=== PATIENT | female | born 1980 | race Caucasian/White ===

== ENCOUNTER → 2017-02-10 | Outpatient (CLI) | payer MEDICARE ==
[~2017-02-10] MED LIST: ATARAX25 MG PO; CELEXA20 MG PO; DAYPRO600 M1 PO; INVEGA6 MG PO; MEDROL DOSEPAK4 MG PO; NORFLEX100 MG PO; PIROXICAN10 MG PO; SEPTRA DS 800 M1 TAB PO; TAGAMET300 MG PO; TRAMADOL HCL50 MG PO; WELLBUTRIN SR150 MG PO
[2017-02-10 18:57] LABS: BASO # 0.1 10*3/uL (0.0-0.1); BASO % 0.7 % (0.0-1.0); EOS # 0.3 10*3/uL (0.0-0.4); EOS % 2.6 % (1.0-4.0); HEMATOCRIT 38.5 % (37.0-47.0); HEMOGLOBIN 13.7 g/dl (12.0-16.0); LYMPH # 3.8 10*3/uL (1.3-4.4); LYMPH % 36.6 % (27.0-41.0); MEAN CELL VOLUME 88.9 fl (81.0-99.0); MEAN CORPUSCULAR HGB 31.6 pg (27.0-31.0); MEAN CORPUSCULAR HGB CONC 35.6 g/dl (33.0-37.0); MEAN PLATELET VOLUME 9.9 fl (9.6-12.3); MONO # 0.5 10*3/uL (0.1-1.0); MONO % 4.7 % (3.0-9.0); NEUT # 5.7 10*3/uL (2.3-7.9); PLATELET COUNT AUTOMATED 282 10*3/uL (130-400); RED BLOOD COUNT 4.33 10*6/uL (4.10-5.10); RED CELL DISTRI WIDTH 11.5 % (0-14.5); WHITE BLOOD COUNT 10.4 10*3/uL (4.8-10.8)
[2017-02-10 19:27] LABS: ALBUMIN 3.6 gm/dl (3.1-4.5); BILIRUBIN, DIRECT < 0.1 mg/dL (0.0-0.2); BUN 16 mg/dl (7-24); CHLORIDE 106 mmol/L (98-107); CHOLESTEROL 224 mg/dL (<200); CREATININE 0.93 mg/dL (0.55-1.02); HDL CHOLESTEROL 39 mg/dl (40-60); POTASSIUM 3.8 mmol/L (3.5-5.1); SGOT/AST 28 IU/L (3-35); SGPT/ALT 31 U/L (12-78); SODIUM 139 mmol/L (136-145); T3 UPTAKE 39 % (31-39); TOTAL PROTEIN 7.3 gm/dL (6.4-8.2); TRIGLYCERIDES 697 mg/dl (<150)
[2017-02-10 19:32] LABS: ALKALINE PHOSPHATASE 98 U/L (45-117)
[2017-02-10 19:45] LABS: FREE T4 0.84 ng/dl (0.76-1.46)
== END | disposition home or self-care (01) ==
LOC: LAB 18:17
PROVIDERS: Nurse Practitioner Family
DX: E55.9 Vitamin D deficiency, unspecified (principal); Z79.899 Other long term (current) drug therapy

== ENCOUNTER → 2017-09-13 | Outpatient (CLI) | payer BC ==
[2017-09-13 10:23] LABS: CHOLESTEROL 220 mg/dL (<200); HDL CHOLESTEROL 29 mg/dl (40-60); TRIGLYCERIDES 512 mg/dl (<150)
== END | disposition home or self-care (01) ==
LOC: LAB 09:24
PROVIDERS: Nurse Practitioner Family
DX: Z51.81 Encounter for therapeutic drug level monitoring (principal); Z79.899 Other long term (current) drug therapy

== ENCOUNTER → 2019-01-20 | Outpatient (CLI) | payer BC | END | disposition home or self-care (01) | LOC: RAD 10:26 | DX: M17.0 Bilateral primary osteoarthritis of knee (principal) ==

== ENCOUNTER 2019-07-14 10:20 | Emergency (ER) | payer BC ==
[~2019-07-14] VITALS: Ht 162.5 cm; Wt 90.7 kg
[2019-07-14 11:21] LABS: BASO # 0.1 10*3/uL (0.0-0.1); BASO % 0.5 % (0.0-1.0); EOS # 0.2 10*3/uL (0.0-0.4); EOS % 1.9 % (1.0-4.0); HEMATOCRIT 40.4 % (37.0-47.0); HEMOGLOBIN 13.9 g/dl (12.0-16.0); LYMPH # 2.4 10*3/uL (1.3-4.4); LYMPH % 25.6 % (27.0-41.0); MEAN CELL VOLUME 91.2 fl (81.0-99.0); MEAN CORPUSCULAR HGB 31.4 pg (27.0-31.0); MEAN CORPUSCULAR HGB CONC 34.4 g/dl (33.0-37.0); MEAN PLATELET VOLUME 9.6 fl (9.6-12.3); MONO # 0.7 10*3/uL (0.1-1.0); MONO % 7.6 % (3.0-9.0); NEUT % 64.2 % (47.0-73.0); PLATELET COUNT AUTOMATED 259 10*3/uL (130-400); RED BLOOD COUNT 4.43 10*6/uL (4.10-5.10); RED CELL DISTRI WIDTH 11.7 % (0-14.5); WHITE BLOOD COUNT 9.3 10*3/uL (4.8-10.8)
[2019-07-14 11:22] LABS: ALKALINE PHOSPHATASE 106 U/L (45-117); BUN 15 mg/dl (7-24); CHLORIDE 107 mmol/L (98-107); CREATININE 0.88 mg/dL (0.55-1.02); LIPASE 79 U/L (73-393); POTASSIUM 3.9 mmol/L (3.5-5.1); SGOT/AST 15 IU/L (3-35); SGPT/ALT 35 U/L (12-78); SODIUM 136 mmol/L (136-145); TOTAL PROTEIN 7.3 gm/dL (6.4-8.2)
[2019-07-14 12:26] LABS: BILIRUBIN NEGATIVE (NEGATIVE); CLARITY CLOUDY (CLEAR); COLOR YELLOW (YELLOW); GLUCOSE NEGATIVE (NEGATIVE); KETONE NEGATIVE (NEGATIVE); SPECIFIC GRAVITY 1.015 (1.005-1.030)
[2019-07-14 12:27] LABS: BLOOD 3+ (NEGATIVE); LEUKO ESTERASE NEGATIVE (NEGATIVE); NITRITE NEGATIVE (NEGATIVE); UROBILINOGEN 0.2 E.U./dl (0.2-1.0)
[2019-07-14 12:43] LABS: BACTERIA TRACE; EPITHELIAL CELLS 20-30
[2019-07-14] MEDS ORDERED: DICYCLOMINE HCL20 MG PO (14:37)
[2019-07-14] MEDS ORDERED: ZOFRAN4 MG PO (14:37)
[2019-07-14] MEDS ORDERED: CARAFATE1 G1 PO (14:37)
== END 2019-07-14 14:49 | disposition home or self-care (01) ==
LOC: ED 10:20
PROVIDERS: Nurse Practitioner Family
DX: K52.9 Noninfective gastroenteritis and colitis, unspecified (principal); E03.9 Hypothyroidism, unspecified; Z79.899 Other long term (current) drug therapy

== ENCOUNTER 2019-10-13 01:51 | Emergency (ER) | payer BC ==
[~2019-10-13] VITALS: Ht 162.5 cm; Wt 90.7 kg
[~2019-10-13 01:51] MED LIST changes: +CARAFATE1 G1 PO; +DICYCLOMINE HCL20 MG PO; +ZOFRAN4 MG PO
[2019-10-13 02:11] LABS: BILIRUBIN NEGATIVE (NEGATIVE); BLOOD NEGATIVE (NEGATIVE); CLARITY CLEAR (CLEAR); COLOR YELLOW (YELLOW); GLUCOSE NEGATIVE (NEGATIVE); KETONE NEGATIVE (NEGATIVE); NITRITE NEGATIVE (NEGATIVE); PH 6.5 (5.0-9.0); UROBILINOGEN 0.2 E.U./dl (0.2-1.0)
[2019-10-13 02:12] LABS: LEUKO ESTERASE NEGATIVE (NEGATIVE)
[2019-10-13 02:19] LABS: RBC 0-2 rbc/hpf (0-2); WBC 0-2 wbc/hpf (0-5)
[2019-10-13 02:33] LABS: BASO # 0.1 10*3/uL (0.0-0.1); BASO % 0.5 % (0.0-1.0); EOS # 0.2 10*3/uL (0.0-0.4); EOS % 1.8 % (1.0-4.0); HEMATOCRIT 36.2 % (37.0-47.0); LYMPH % 31.7 % (27.0-41.0); MEAN CELL VOLUME 91.6 fl (81.0-99.0); MEAN CORPUSCULAR HGB 31.4 pg (27.0-31.0); MEAN CORPUSCULAR HGB CONC 34.3 g/dl (33.0-37.0); MEAN PLATELET VOLUME 9.6 fl (9.6-12.3); MONO # 0.7 10*3/uL (0.1-1.0); MONO % 6.9 % (3.0-9.0); NEUT # 5.6 10*3/uL (2.3-7.9); NEUT % 58.8 % (47.0-73.0); PLATELET COUNT AUTOMATED 271 10*3/uL (130-400); RED BLOOD COUNT 3.95 10*6/uL (4.10-5.10); RED CELL DISTRI WIDTH 11.7 % (0-14.5); WHITE BLOOD COUNT 9.6 10*3/uL (4.8-10.8)
[2019-10-13 02:56] LABS: ALBUMIN 3.4 gm/dl (3.1-4.5); ALKALINE PHOSPHATASE 93 U/L (45-117); BUN 17 mg/dl (7-24); CHLORIDE 108 mmol/L (98-107); CREATININE 0.84 mg/dL (0.55-1.02); LIPASE 74 U/L (73-393); POTASSIUM 3.9 mmol/L (3.5-5.1); SGOT/AST 11 IU/L (3-35); SGPT/ALT 31 U/L (12-78); SODIUM 140 mmol/L (136-145); TOTAL PROTEIN 6.6 gm/dL (6.4-8.2)
[2019-10-13 02:57] LABS: TROPONIN I < 0.015 ng/ml (<0.045)
[2019-10-13] MEDS ORDERED: ZITHROMAX250 MG PO (04:46)
[2019-10-13] MEDS ORDERED: PEPCID20 MG PO (04:46)
== END 2019-10-13 05:20 | disposition home or self-care (01) ==
LOC: ED 01:51
PROVIDERS: Emergency Medicine Emergency Medical Services
DX: J18.9 Pneumonia, unspecified organism (principal); K29.70 Gastritis, unspecified, without bleeding; K21.9 Gastro-esophageal reflux disease without esophagitis; F31.9 Bipolar disorder, unspecified; F41.9 Anxiety disorder, unspecified; Z79.899 Other long term (current) drug therapy

== ENCOUNTER → 2019-10-17 | Outpatient (CLI) | payer BC ==
[~2019-10-17] MED LIST changes: +PEPCID20 MG PO; +ZITHROMAX250 MG PO
== END | disposition home or self-care (01) ==
LOC: US 07:30
DX: K76.0 Fatty (change of) liver, not elsewhere classified (principal)

== ENCOUNTER → 2019-11-17 | Outpatient (CLI) | payer BC | END | disposition home or self-care (01) | LOC: RAD 11:19 | DX: J18.9 Pneumonia, unspecified organism (principal) ==

== ENCOUNTER → 2019-12-18 | Outpatient (CLI) | payer BC ==
[2019-12-18 07:15] LABS: BETA-HCG, QUANT < 1.0 mIU/mL (1-3)
== END | disposition home or self-care (01) ==
LOC: LAB 05:47
PROVIDERS: Nurse Practitioner Primary Care
DX: N64.52 Nipple discharge (principal); R11.0 Nausea; R73.03 Prediabetes; N92.6 Irregular menstruation, unspecified

== ENCOUNTER → 2020-01-09 | Outpatient (CLI) | payer BC | END | disposition home or self-care (01) | LOC: LAB 07:12 → US 07:30 | DX: K76.0 Fatty (change of) liver, not elsewhere classified (principal); R79.89 Other specified abnormal findings of blood chemistry; R10.9 Unspecified abdominal pain; N64.52 Nipple discharge; N64.4 Mastodynia ==

== ENCOUNTER → 2020-01-16 | Outpatient (CLI) | payer BC | END | disposition home or self-care (01) | LOC: NM 00:55 | DX: R10.9 Unspecified abdominal pain (principal); R10.13 Epigastric pain ==

== ENCOUNTER → 2022-08-16 | Outpatient (CLI) | payer BC | END | disposition home or self-care (01) | LOC: RAD 07:23 | PROVIDERS: ATTEND Family Medicine | DX: M17.0 Bilateral primary osteoarthritis of knee (principal); M25.761 Osteophyte, right knee; M25.762 Osteophyte, left knee; M25.462 Effusion, left knee; M25.461 Effusion, right knee ==

== ENCOUNTER 2023-05-15 12:39 | Emergency (ER) | payer BC ==
[~2023-05-15] VITALS: Ht 162.5 cm; Wt 97.1 kg
[2023-05-15] MEDS ORDERED: Synthroid,Levo25 MCG PO (13:27)
[2023-05-15] MEDS ORDERED: LIPITOR10 MG PO (13:28)
[2023-05-15] MEDS ORDERED: PANTOPRAZOLE SO40 MG PO (13:28)
[2023-05-15] MEDS ORDERED: LAMICTAL200 MG PO (13:29)
[2023-05-15 13:54] LABS: BILIRUBIN Negative (Negative); BLOOD Negative (Negative); CLARITY Clear (Clear); COLOR Yellow (Yellow); GLUCOSE Negative (Negative); KETONE Negative (Negative); LEUKO ESTERASE Negative (Negative); NITRITE Negative (Negative); SPECIFIC GRAVITY 1.025 (1.001-1.030); UROBILINOGEN 0.2 E.U./dl (0.0-1.0)
[2023-05-15 14:07] LABS: BACTERIA 1+; MUCOUS 1+
[2023-05-15 14:27] LABS: BASO # 0.1 10*3/uL (0.0-0.1); BASO % 0.5 % (0.0-1.0); EOS # 0.2 10*3/uL (0.0-0.4); EOS % 1.5 % (1.0-4.0); HEMATOCRIT 37.6 % (37.0-47.0); LYMPH # 3.3 10*3/uL (1.3-4.4); LYMPH % 30.5 % (27.0-41.0); MEAN CELL VOLUME 90.4 fl (81.0-99.0); MEAN CORPUSCULAR HGB CONC 34.3 g/dl (33.0-37.0); MEAN PLATELET VOLUME 9.2 fl (9.6-12.3); MONO # 0.6 10*3/uL (0.1-1.0); MONO % 5.9 % (3.0-9.0); NEUT # 6.6 10*3/uL (2.3-7.9); NEUT % 61.3 % (47.0-73.0); PLATELET COUNT AUTOMATED 298 10*3/uL (130-400); RED BLOOD COUNT 4.16 10*6/uL (4.10-5.10); RED CELL DISTRI WIDTH 12.4 % (0-14.5); WHITE BLOOD COUNT 10.8 10*3/uL (4.8-10.8)
[2023-05-15 14:49] LABS: ALKALINE PHOSPHATASE 87 U/L (46-116); BUN 17 mg/dl (9-23); CHLORIDE 108 mmol/L (98-107); LIPASE 28 U/L (12-53); POTASSIUM 3.9 mmol/L (3.4-5.1); SGPT/ALT 23 U/L (5-49)
[2023-05-15 14:50] LABS: BETA-HCG, QUANT < 3.0 mIU/mL (3-10)
== END 2023-05-15 16:20 | disposition home or self-care (01) ==
LOC: ED 12:39
PROVIDERS: Family Medicine; Physician Assistant Medical
DX: M62.838 Other muscle spasm (principal); R10.32 Left lower quadrant pain; M54.9 Dorsalgia, unspecified; R10.2 Pelvic and perineal pain; F31.9 Bipolar disorder, unspecified; F41.9 Anxiety disorder, unspecified; K21.9 Gastro-esophageal reflux disease without esophagitis; Z90.89 Acquired absence of other organs; Z98.890 Other specified postprocedural states; Z98.51 Tubal ligation status; Z87.891 Personal history of nicotine dependence

== ENCOUNTER → 2023-10-04 | Outpatient (CLI) | payer BC ==
[~2023-10-04] MED LIST changes: +LAMICTAL200 MG PO; +LIPITOR10 MG PO; +PANTOPRAZOLE SO40 MG PO; +Synthroid,Levo25 MCG PO
[2023-10-04 08:07] LABS: BASO # 0.1 10*3/uL (0.0-0.1); BASO % 0.7 % (0.0-1.0); EOS # 0.1 10*3/uL (0.0-0.4); EOS % 1.8 % (1.0-4.0); HEMATOCRIT 39.4 % (37.0-47.0); LYMPH # 2.3 10*3/uL (1.3-4.4); LYMPH % 32.5 % (27.0-41.0); MEAN CELL VOLUME 93.6 fl (81.0-99.0); MEAN CORPUSCULAR HGB 30.2 pg (27.0-31.0); MEAN CORPUSCULAR HGB CONC 32.2 g/dl (33.0-37.0); MEAN PLATELET VOLUME 9.6 fl (9.6-12.3); MONO # 0.5 10*3/uL (0.1-1.0); MONO % 6.3 % (3.0-9.0); NEUT # 4.2 10*3/uL (2.3-7.9); NEUT % 58.3 % (47.0-73.0); PLATELET COUNT AUTOMATED 269 10*3/uL (130-400); RED BLOOD COUNT 4.21 10*6/uL (4.10-5.10); RED CELL DISTRI WIDTH 13.1 % (0-14.5); WHITE BLOOD COUNT 7.2 10*3/uL (4.8-10.8)
[2023-10-04 08:41] LABS: ALKALINE PHOSPHATASE 89 U/L (46-116); BUN 13 mg/dl (9-23); CHLORIDE 106 mmol/L (98-107); CHOLESTEROL 149 mg/dL (<200); LDL CHOLESTEROL 73 mg/dL (9-159); POTASSIUM 4.3 mmol/L (3.4-5.1); SGPT/ALT 22 U/L (5-49); TRIGLYCERIDES 144 mg/dl (<150)
== END ==
LOC: LAB 07:49
PROVIDERS: ATTEND Nurse Practitioner Primary Care
DX: E03.9 Hypothyroidism, unspecified (principal); R19.7 Diarrhea, unspecified; E53.8 Deficiency of other specified B group vitamins; E78.2 Mixed hyperlipidemia; R73.03 Prediabetes

== ENCOUNTER → 2025-03-04 | Outpatient (CLI) | payer BC ==
[2025-03-04 08:02] LABS: BUN 20 mg/dl (9-23); SGPT/ALT 44 U/L (5-49)
== END | disposition home or self-care (01) ==
LOC: LAB 07:15
PROVIDERS: ATTEND Orthopaedic Surgery
DX: Z79.1 Long term (current) use of non-steroidal anti-inflammatories (NSAID) (principal)

== ENCOUNTER → 2025-03-27 | Outpatient (CLI) | payer BC ==
[2025-03-27 10:17] LABS: BASO # 0.0 10*3/uL (0.0-0.1); BASO % 0.3 % (0.0-1.0); EOS # 0.2 10*3/uL (0.0-0.4); EOS % 2.0 % (1.0-4.0); MEAN CELL VOLUME 98.9 fl (81.0-99.0); MEAN CORPUSCULAR HGB 31.7 pg (27.0-31.0); MEAN PLATELET VOLUME 8.9 fl (9.6-12.3); MONO # 0.7 10*3/uL (0.1-1.0); MONO % 5.6 % (3.0-9.0); NEUT # 8.1 10*3/uL (2.3-7.9); NEUT % 66.6 % (47.0-73.0); NUCLEATED RED BLOOD CELL 0.0 % (0.0-0.0); NUCLEATED RED BLOOD CELL 0.0 10*3/uL (0.0-0.0); PLATELET COUNT AUTOMATED 260 10*3/uL (130-400); RED CELL DISTRI WIDTH 13.8 % (0-14.5)
[2025-03-27 10:41] LABS: BUN 18 mg/dl (9-23); LDL CHOLESTEROL 86 mg/dL (9-159); SGPT/ALT 25 U/L (5-49)
[2025-03-27 10:49] LABS: VITAMIN D, 25-HYDROXY 64.3 ng/mL (30-100)
== END | disposition home or self-care (01) ==
LOC: LAB 09:42
PROVIDERS: ATTEND Internal Medicine
DX: E78.1 Pure hyperglyceridemia (principal); E55.9 Vitamin D deficiency, unspecified; E03.9 Hypothyroidism, unspecified; R73.03 Prediabetes